=== PATIENT | female | born 1965 | race Caucasian/White ===

== ENCOUNTER → 2016-08-13 | Outpatient (CLI) | payer OTHER ==
--- NOTE | ~2016-08-13 | MY11 ---
[facility] A Service of [facility] RADIOLOGY TEXT RESULTS PATIENT: EULALIO VO LOCATION: [facility] : 65 UNIT #: [id number] AGE: [address]: Ever Davila MD SEX: F ORDER DR: [id number] [address] [address] [id number] O MR#: [id number] Acc #: [id number] NAME: EULALIO VO : 1965 SEX: F STUDY DATE/TIME: 08/13/2016 13:08 UNIT: [facility] ROOM: STUDY DESCRIPTION: MY Mammogram Screening Dig [place] Attending Physician: Ever Davila M.D. Referring Physician: Faby Mckinnon M.D. Ordering Physician: Ever Davila M.D. Primary Care Physician: Ever Davila M.D. MEDICAL IMAGING REPORT This report is preliminary unless electronic signature is present. EXAM Bilateral digital screening mammogram with CAD 08/13/2016 INDICATIONS Routine screening. No reported problems no personal history of breast cancer. Family history positive in a maternal grandmother. No surgeries. TECHNIQUE CC and MLO views of breasts were obtained and reviewed with an FDA-approved CAD device. COMPARISON 07/13/2011 FINDINGS Breast parenchyma is composed of scattered fibroglandular densities. The pattern is unchanged. There is no new dominant nodule mass or suspicious cluster of microcalcifications. Benign calcifications are present. There is a stable partially obscured nodule in the central left breast at about the 3 o'clock position. This is unchanged from the prior study for technical factors dating back to 2011 and therefore benign. IMPRESSION 1. Benign screening mammogram 1 year followup recommended. Patients over the age of 40 are entered into a reminder system with target due date for the next mammogram. A result letter will also be sent to the patient. BIRADS: 2, benign findings. [facility] A Service [facility] RADIOLOGY TEXT RESULTS PATIENT: EULALIO VO LOCATION: [facility] : 65 UNIT #: [id number] AGE: [address]: Ever Davila MD SEX: F ORDER DR: Dictated by... Finesse Naranjo M.D. THIS IS AN ELECTRONICALLY VERIFIED REPORT Finesse Naranjo M.D. at 08/16/2016 7:45 AM MARCIA/cristela TD: 08/14/2016 05:48 JOB #: [id number] MEDICAL IMAGING REPORT
--- NOTE | ~2016-08-13 | US98 ---
[facility] A Service of [facility] RADIOLOGY TEXT RESULTS PATIENT: EULALIO VO LOCATION: [facility] : 65 UNIT #: [id number] AGE: [address]: Ever Davila MD SEX: F ORDER DR: [id number] [address] [address] [id number] O MR#: [id number] Acc #: [id number] NAME: EULALIO VO : 1965 SEX: F STUDY DATE/TIME: 08/13/2016 13:33 UNIT: [facility] ROOM: STUDY DESCRIPTION: US Pelvic Non-OB Complete Attending Physician: Ever Davila M.D. Referring Physician: Faby Mckinnon M.D. Ordering Physician: Ever Davila M.D. Primary Care Physician: Ever Davila M.D. MEDICAL IMAGING REPORT This report is preliminary unless electronic signature is present. EXAM Transabdominal and transvaginal pelvic ultrasound 08/13/2016 HISTORY Vaginal bleeding, spotting for 6 months. FINDINGS Transabdominal and transvaginal pelvic ultrasound was performed. Endovaginal ultrasound was performed for attempted better visualization of the adnexal structures. The bladder is normal in appearance. The uterus measures 9.5 cm craniocaudal x 3.3 cm AP x 5.4 cm transverse. The endometrial stripe was poorly visualized. The right ovary measured 3.5 cm x 2.5 cm x 2.7 cm. The left ovary was not identified on either transabdominal or transvaginal portions of the examination. No adnexal mass was seen and there is no free fluid in the pelvis. IMPRESSION Limited exam as the endometrial stripe and left ovary were not identified on either transabdominal or transvaginal portions of the examination. Otherwise negative pelvic ultrasound. Dictated by... Emmett Schmitz M.D. THIS IS AN ELECTRONICALLY VERIFIED REPORT Emmett Schmitz M.D. at 08/16/2016 10:36 AM MENDEL/main TD: 08/14/2016 09:35 JOB #: [id number] [facility] A Service of [facility] RADIOLOGY TEXT RESULTS PATIENT: EULALIO VO LOCATION: [facility] : 65 UNIT #: [id number] AGE: [address]: Ever Davila MD SEX: F ORDER DR: MEDICAL IMAGING REPORT
== END | disposition home or self-care (01) ==
LOC: SMAM 12:36
DX: Z12.31 Encounter for screening mammogram for malignant neoplasm of breast (principal); N93.9 Abnormal uterine and vaginal bleeding, unspecified; Z80.3 Family history of malignant neoplasm of breast
CPT/HCPCS: 76830; 76856; G0202